=== PATIENT | female | born 1950 | race Caucasian/White ===

== ENCOUNTER 2019-02-18 05:28 | Outpatient (CLI) | payer MEDICARE ==
[~2019-02-18] VITALS: Ht 157 cm; Wt 72.7 kg
[2019-02-18] MEDS ORDERED: MULT-1029 PO (10:49)
[2019-02-18] MEDS ORDERED: CITA20TA9 PO (10:49)
[2019-02-18] MEDS ORDERED: PANT40TA3 PO (10:49)
[2019-02-18] MEDS ORDERED: FAMO20TA3 PO (10:49)
[2019-02-18] MEDS ORDERED: MONT10TA21 PO (10:49)
[2019-02-18] MEDS ORDERED: ASCO1TAB36 PO (10:49)
[2019-02-18] MEDS ORDERED: [UNRECOGNIZED DRUG - CODE] PO (10:49)
[2019-02-18] MEDS ORDERED: ATOR40TA70 PO (10:49)
[2019-02-18] MEDS ORDERED: UMEC1BLS IH (10:49)
== END 2019-02-18 10:54 | disposition home or self-care (01) ==
LOC: PREOP 05:28
PROVIDERS: ATTEND Specialist
DX: Z01.818 Encounter for other preprocedural examination (principal)

== ENCOUNTER 2019-02-20 08:46 | Day surgery (SDC) | payer MEDICARE, OTHER ==
[~2019-02-20] VITALS: Ht 157 cm; Wt 72.7 kg
[~2019-02-20 08:46] MED LIST: ASCO1TAB36 PO; ATOR40TA70 PO; CITA20TA9 PO; FAMO20TA3 PO; MONT10TA21 PO; MULT-1029 PO; PANT40TA3 PO; UMEC1BLS IH; [UNRECOGNIZED DRUG - CODE] PO
[2019-02-20] MEDS ORDERED: POVIDONE (BETADINE) OPHTH SOLN 5% 30 ML OP ONE (09:15)
[2019-02-20] MEDS ORDERED: TIMOLOL MALEATE 0.5% 5 ML (TIMOPTIC) BTL OU PRN (09:15)
[2019-02-20] MEDS ORDERED: MOXIFLOXACIN OPHTH SOLN 5 MG/ML 0.3 ML SYRINGE OP ONE (09:15)
[2019-02-20] MEDS ORDERED: LIDOCAINE PF 1% 2 ML AMP IR PRN (09:15)
[2019-02-20] MEDS: TETRACAINE 0.5% OPHTH SOLN 4 ML BTL (SINGLE DOSE ONLY) OU PRN ×4 (09:30→09:56)
[2019-02-20 09:35] VITALS: BP 144/67
[2019-02-20] MEDS ORDERED: MIDAZOLAM 2 MG/2 ML (VERSED) VIAL ONE (09:44)
[2019-02-20] MEDS: PHENYLEPHRINE 10% OPHTH (NEO-SYN) 5 ML BTL OU SCH ×3 (09:44→09:56)
[2019-02-20] MEDS: CYCLOPENTOLATE 1% (CYCLOGYL) 2 ML DROPS OP SCH ×3 (09:44→09:56)
--- NOTE | 2019-02-20 10:22 | Ophthalmologist Pre-Op Note ---
Pre-Operative Progress Note H&P Reviewed The H&P was reviewed, patient examined and no changes noted. Date H&P Reviewed: Feb 20, 2019 Time H&P Reviewed: 10:21 Pre-Op Dx Cataract, Right Eye KORINA ROJAS MD Feb 20, 2019 10:22 POS
[2019-02-20] MEDS ORDERED: acetaZOLAMIDE ER 500 MG CAP (DIAMOX SEQUELS) PO ONE (10:30)
--- NOTE | 2019-02-20 10:44 | Ophthalmology Operative Report ---
Cataract removal/placement IOL PREOPERATIVE DIAGNOSIS: Cataract Right Eye POSTOPERATIVE DIAGNOSIS: Cataract Right Eye PROCEDURE: Cataract removal and placement of posterior chamber implant, right eye SURGEON: Ross Rojas ANESTHESIA: Topical with sedation COMPLICATIONS: None ESTIMATED BLOOD LOSS: Minimal DESCRIPTION OF PROCEDURE: After proper informed consent was obtained, the patient, a 68 female, was taken to the Operating Room and the right eye was anesthetized with tetracaine. The right eye was then prepped and draped in the usual manner. A wire lid speculum was placed. A paracentesis was made at the left hand position. Preservative free lidocaine was injected into the anterior chamber followed by viscoelastic. A clear corneal incision was made in the temporal position. A capsulorrhexis was preformed and the central nuclear and cortical material were removed. The posterior capsule was polished and Carlo [id number] 19.0 IOL was placed into the capsular bag. The residual viscoelastic was aspirated and balanced saline solution was injected into the anterior chamber. Moxifloxacin was injected into the anterior chamber. The wound was checked and found to be water tight. The patient tolerated the procedure well without complications. ROSS ROJAS MD Feb 20, 2019 10:44 POS
[2019-02-20 10:55] VITALS: BP 144/67
--- NOTE | 2019-02-20 13:08 | Anesthesia-General Post-Op ---
MAC Patient Condition Mental Status/LOC: Same as Preop Cardiovascular: Satisfactory Nausea/Vomiting: Absent Respiratory: Satisfactory Pain: Controlled Complications: Absent Post Op Complications Complications None Follow Up Care/Instructions Patient Instructions None needed. Anesthesiology Discharge Order Discharge Order Patient is doing well, no complaints, stable vital signs, no apparent adverse anesthesia problems. No complications reported per nursing. NIXON HARRIS CRNA Feb 20, 2019 13:08 POS
== END 2019-02-20 10:55 | disposition home or self-care (01) ==
LOC: SDC 08:46
PROVIDERS: ATTEND Specialist
DX: H25.11 Age-related nuclear cataract, right eye (principal); J44.9 Chronic obstructive pulmonary disease, unspecified; E78.00 Pure hypercholesterolemia, unspecified; K21.9 Gastro-esophageal reflux disease without esophagitis; Z80.3 Family history of malignant neoplasm of breast; Z82.49 Family history of ischemic heart disease and other diseases of the circulatory system; Z88.1 Allergy status to other antibiotic agents; Z90.710 Acquired absence of both cervix and uterus; Z79.899 Other long term (current) drug therapy

== ENCOUNTER 2022-11-21 06:03 | Outpatient (CLI) | payer MEDICARE ==
[~2022-11-21] VITALS: Ht 152.4 cm; Wt 70.5 kg
[~2022-11-21 06:03] MED LIST changes: +MONT-47 PO; -MONT10TA21 PO; -PANT40TA3 PO; +PANT40TA52 PO; +[UNRECOGNIZED DRUG - CODE] PO; -[UNRECOGNIZED DRUG - CODE] PO
== END 2022-11-21 16:21 | disposition home or self-care (01) ==
LOC: PREOP 06:03
PROVIDERS: ATTEND Specialist
DX: Z01.818 Encounter for other preprocedural examination (principal)

== ENCOUNTER 2022-11-23 10:00 | Day surgery (SDC) | payer MEDICARE, OTHER ==
[~2022-11-23] VITALS: Ht 152.4 cm; Wt 70.5 kg
[2022-11-23] MEDS: TETRACAINE 0.5% OPHTH SOLN 4 ML BTL (SINGLE DOSE ONLY) OU PRN ×3 (10:17→10:29)
[2022-11-23] MEDS: PHENYLEPHRINE 10% OPHTH SOLN 5 ML BTL OU PRN ×2 (10:22→10:29)
[2022-11-23] MEDS: TROPICAMIDE 1% OPH SOLN (MYDRIACYL) 15 ML BTL OU PRN ×2 (10:22→10:29)
[2022-11-23 10:35] VITALS: BP 125/75
--- NOTE | 2022-11-23 10:40 | Ophthalmologist Pre-Op Note ---
Pre-Operative Progress Note H&P Reviewed The H&P was reviewed, patient examined and no changes noted. Date H&P Reviewed: Nov 23, 2022 Time H&P Reviewed: 10:40 Pre-Op Dx Secondary Cataract, Bilateral Eyes KORINA ROJAS MD Nov 23, 2022 10:40
--- NOTE | 2022-11-23 11:04 | Ophthalmology Operative Report ---
YAG Capsulotomy PREOPERATIVE DIAGNOSIS: Secondary Cataract Bilateral POSTOPERATIVE DIAGNOSIS: Secondary Cataract Bilateral PROCEDURE: YAG Capsulotomy, Bilateral SURGEON: Ross Rojas ANESTHESIA: Topical anesthesia COMPLICATIONS: None ESTIMATED BLOOD LOSS: Minimal DESCRIPTION OF PROCEDURE: After proper informed consent was obtained, the patient's, a 72 female , received one drop of Tropicamide and one drop of Tetracaine in each eye. The patient was then placed at the YAG laser and using a power of [4.5 ] millijoules and bursts [29 ] right eye and [24 ] left eye were used to fashion a central capsulotomy. The patient tolerated the procedure well without complications. ROSS ROJAS MD Nov 23, 2022 11:04
== END 2022-11-23 10:50 | disposition home or self-care (01) ==
LOC: SDC 10:00
PROVIDERS: ATTEND Specialist
DX: H26.40 Unspecified secondary cataract (principal)